=== PATIENT | female | born 1965 | race African-American/Black ===

== ENCOUNTER 2018-06-27 23:46 | Inpatient (IN) | payer MEDICAID ==
[~2018-06-27] VITALS: Ht 162.6 cm; Wt 71.2 kg
[2018-06-28] VITALS (9 sets, daily range): BP systolic 132–172; BP diastolic 75–117
[2018-06-28] MEDS ORDERED: FUROSEMIDE 40MG/4ML VIAL IV ONE
[2018-06-28] MEDS ORDERED: ASPIRIN 81MG TABLET PO ONE
[2018-06-28 00:38] LABS: BASOPHILS % 0.7 % (0.0-2.0); EOSINOPHILS % 6.9 % (0.0-5.0); HEMATOCRIT. 37.2 % (36.0-48.0); HEMOGLOBIN. 12.5 g/dL (12.0-16.0); LYMPHOCYTES % 16.2 % (20.0-50.0); MEAN CORPUSCULAR HEMOGLOBIN 31.2 pg (28.0-32.0); MEAN PLATELET VOLUME 7.7 fl (7.4-10.4); MONOCYTES % 3.4 % (2.0-8.0); NEUTROPHILS % 72.8 % (40.0-76.0); PLATELET 388 x1000/uL (130-400); RED CELL DISTRIBUTION WIDTH 16.4 % (11.6-14.6)
[2018-06-28 00:42] LABS: CHLORIDE 108 mEq/L (98-107)
[2018-06-28 00:53] LABS: ETHANOL BLOOD < 10 mg/dL
[2018-06-28 01:00] LABS: D-DIMER 11.06 mg/L FEU (<0.50); PARTIAL THROMBOPLASTIN TIME 24.7 sec (23.4-31.0); PROTHROMBIN TIME 10.4 sec (9.1-11.1)
[2018-06-28 01:02] LABS: BG BASE EXCESS -0.2 mmol/L (-2.0-2.0); BG BILEVEL POS AIRWAY PRESSURE 15/5; BG CARBOXYHEMOGLOBIN 1.2 % (0.5-1.5); BG DEOXYHEMOGLOBIN 0.5 % (0.0-5.0); BG FRACTION INSPIRED OXYGEN 100; BG METHEMOGLOBIN 0.3 % (0.0-1.5); BG OXYGEN SATURATION 99.5 % (92.0-98.5); BG PCO2 42.9 mmHg (35.0-45.0); BG PH 7.383 (7.350-7.450); BG PO2 264.9 mmHg (75.0-100.0); BG SAMPLE SITE RIGHT RADIAL; BG VENT MODE MASK - BIPAP
[2018-06-28] MEDS ORDERED: KCL 20MEQ/100ML PREMIX 100 ML IV ONE (01:15)
[2018-06-28] MEDS ORDERED: POTASSIUM CHLORIDE 20MEQ TABLET SR PO ONE (01:15)
[2018-06-28] MEDS ORDERED: NITROGLYCERIN OINT 1GM/INCH UDPKT TD ONE (01:15)
[2018-06-28 01:18] LABS: CLARITY URINE CLEAR (CLEAR); COLOR URINE YELLOW (YELLOW); KETONES URINE NEGATIVE (NEGATIVE); LEUKOCYTE ESTERASE URINE NEGATIVE (NEGATIVE); NITRITE URINE NEGATIVE (NEGATIVE); OCCULT BLOOD URINE 1+ (NEGATIVE); PROTEIN URINE 3+ (NEGATIVE); SPECIFIC GRAVITY URINE 1.009 (1.005-1.030)
[2018-06-28 01:29] LABS: *AMPHETAMINES SCREEN URINE NEGATIVE (NEGATIVE); *BARBITURATES SCREEN URINE NEGATIVE (NEGATIVE); *BENZODIAZEPINES SCREEN URINE NEGATIVE (NEGATIVE); *COCAINE SCREEN URINE PRESUMTIVE POSITIVE (NEGATIVE)
[2018-06-28 01:30] LABS: CANNABINOID URINE SCREEN PRESUMTIVE POSITIVE (NEGATIVE); METHADONE URINE SCREEN NEGATIVE (NEGATIVE); OPIATES URINE SCREEN NEGATIVE (NEGATIVE); PHENCYCLIDINE URINE SCREEN NEGATIVE (NEGATIVE)
[2018-06-28] MEDS ORDERED: IOHEXOL-350 100 ML BOTTLE ONE (03:17)
[2018-06-28] MEDS ORDERED: DOCUSATE SODIUM 100MG CAPSULE PO PRN (05:30)
[2018-06-28] MEDS ORDERED: IPRATROPIUM/ALBUTEROL 0.5-3(2.5)MG/3ML NEB INH PRN (05:30)
[2018-06-28] MEDS ORDERED: POTASSIUM CHLORIDE 20MEQ TABLET SR PO SCH (05:30)
[2018-06-28] MEDS ORDERED: ENOXAPARIN 80MG/0.8ML SYR SUBCUT SCH (06:00)
[2018-06-28] MEDS: SODIUM CHLORIDE 0.9% INJ 3ML FLUSH IVF SCH ×3 (06:16→21:50)
[2018-06-28] MEDS: FAMOTIDINE 20MG TABLET PO SCH ×2 (08:33→21:49)
[2018-06-28] MEDS: LOSARTAN POTASSIUM 50 MG TABLET PO SCH (08:33)
[2018-06-28] MEDS: CARVEDILOL 12.5MG TABLET PO SCH ×2 (08:34→21:49)
[2018-06-28] MEDS: ENOXAPARIN 40MG/0.4ML SYR SUBCUT SCH (08:34)
[2018-06-28 08:58] LABS: BASOPHILS % 0.5 % (0.0-2.0); EOSINOPHILS % 1.3 % (0.0-5.0); HEMATOCRIT. 35.7 % (36.0-48.0); HEMOGLOBIN. 11.8 g/dL (12.0-16.0); LYMPHOCYTES % 8.9 % (20.0-50.0); MEAN CORPUSCULAR HEMOGLOBIN 30.5 pg (28.0-32.0); MEAN CORPUSCULAR VOLUME 92.2 fL (81.0-99.0); MONOCYTES % 4.1 % (2.0-8.0); NEUTROPHILS % 85.2 % (40.0-76.0); PLATELET 386 x1000/uL (130-400); RED BLOOD CELL COUNT 3.87 mill/uL (4.2-5.4); RED CELL DISTRIBUTION WIDTH 16.4 % (11.6-14.6)
[2018-06-28] MEDS ORDERED: FUROSEMIDE 20MG/2ML VIAL IVP SCH (09:00)
[2018-06-28 09:02] LABS: BG BASE EXCESS -1.1 mmol/L (-2.0-2.0); BG CARBOXYHEMOGLOBIN 0.1 % (0.5-1.5); BG DEOXYHEMOGLOBIN 5.3 % (0.0-5.0); BG FRACTION INSPIRED OXYGEN 44; BG METHEMOGLOBIN 0.3 % (0.0-1.5); BG OXYGEN SATURATION 94.7 % (92.0-98.5); BG OXYHEMOGLOBIN 94.3 % (94.0-97.0); BG PCO2 31.6 mmHg (35.0-45.0); BG PH 7.461 (7.350-7.450); BG PO2 75.4 mmHg (75.0-100.0); BG SAMPLE SITE RIGHT BRACHIAL; BG TOTAL HEMOGLOBIN 11.7 g/dL (12.0-18.0); BG VENT MODE NASAL CANNULA
[2018-06-28] MEDS: IPRATROPIUM/ALBUTEROL 0.5-3(2.5)MG/3ML NEB HHN SCH ×4 (09:06→21:54)
[2018-06-28 09:14] LABS: CHLORIDE 106 mEq/L (98-107)
[2018-06-28 09:21] LABS: LDL CHOLESTEROL 68 mg/dL (5-100)
[2018-06-28 09:23] LABS: HDL CHOLESTEROL 79 mg/dL (40-59)
[2018-06-28] MEDS: CEFTRIAXONE 1 G PREMIX 50 ML IV SCH (18:05)
[2018-06-28] MEDS: CLONIDINE 0.1MG TABLET PO PRN (20:20)
[2018-06-28] MEDS: ACETAMINOPHEN 325MG TABLET PO PRN (21:48)
[2018-06-29] VITALS (20 sets, daily range): BP systolic 126–189; BP diastolic 65–119
[2018-06-29] MEDS: IPRATROPIUM/ALBUTEROL 0.5-3(2.5)MG/3ML NEB HHN SCH ×5 (01:37→16:05)
[2018-06-29] MEDS: CLONIDINE 0.1MG TABLET PO PRN (02:16)
[2018-06-29] MEDS: CEFTRIAXONE 1 G PREMIX 50 ML IV SCH (06:16)
[2018-06-29] MEDS: SODIUM CHLORIDE 0.9% INJ 3ML FLUSH IVF SCH (06:16)
[2018-06-29 07:33] LABS: BASOPHILS % 0.9 % (0.0-2.0); EOSINOPHILS % 7.2 % (0.0-5.0); HEMOGLOBIN. 10.9 g/dL (12.0-16.0); LYMPHOCYTES % 23.7 % (20.0-50.0); MEAN CORPUSCULAR VOLUME 93.9 fL (81.0-99.0); MEAN PLATELET VOLUME 8.2 fl (7.4-10.4); MONOCYTES % 5.6 % (2.0-8.0); NEUTROPHILS % 62.6 % (40.0-76.0); PLATELET 336 x1000/uL (130-400); RED BLOOD CELL COUNT 3.51 mill/uL (4.2-5.4); RED CELL DISTRIBUTION WIDTH 16.5 % (11.6-14.6)
[2018-06-29] MEDS: ENOXAPARIN 40MG/0.4ML SYR SUBCUT SCH (08:15)
[2018-06-29] MEDS: CARVEDILOL 12.5MG TABLET PO SCH (08:16)
[2018-06-29] MEDS: FAMOTIDINE 20MG TABLET PO SCH (08:16)
[2018-06-29] MEDS: LOSARTAN POTASSIUM 50 MG TABLET PO SCH (08:16)
[2018-06-29] MEDS ORDERED: FUROSEMIDE 40MG/4ML VIAL IVP SCH (09:00)
[2018-06-29] MEDS ORDERED: POTASSIUM CHLORIDE 20MEQ TABLET SR PO SCH (09:00)
[2018-06-29 10:37] LABS: BG BASE EXCESS -0.1 mmol/L (-2.0-2.0); BG CARBOXYHEMOGLOBIN 0.8 % (0.5-1.5); BG DEOXYHEMOGLOBIN 5.4 % (0.0-5.0); BG FRACTION INSPIRED OXYGEN 21; BG HCO3 ACT 22.1 mmol/L (22.0-26.0); BG METHEMOGLOBIN 0.1 % (0.0-1.5); BG OXYGEN SATURATION 94.6 % (92.0-98.5); BG OXYHEMOGLOBIN 93.7 % (94.0-97.0); BG PCO2 28.8 mmHg (35.0-45.0); BG PH 7.502 (7.350-7.450); BG PO2 71.8 mmHg (75.0-100.0); BG SAMPLE SITE LEFT BRACHIAL; BG TOTAL HEMOGLOBIN 12.6 g/dL (12.0-18.0); BG VENT MODE ROOM AIR
[2018-06-29] MEDS: ACETAMINOPHEN 325MG TABLET PO PRN (10:53)
== END 2018-06-29 17:12 | disposition home or self-care (01) | DRG 194 ==
LOC: ER 23:46 → 3WST 06-28 01:50 → EDBEDREQTM 06-28 01:54 → EDBEDREQDT 06-28 01:54 → EDBEDREQ 06-28 01:54 → ENRESERV 06-28 02:26 → 3WST 06-28 03:40
PROVIDERS: ADMIT Ophthalmology; ATTEND Ophthalmology
PROC: 5A09357 Assistance with Respiratory Ventilation, Less than 24 Consecutive Hours, Continuous Positive Airway Pressure (ICD-10-PCS; principal; 2018-06-27)
PROC: 5A09357 Assistance with Respiratory Ventilation, Less than 24 Consecutive Hours, Continuous Positive Airway Pressure (ICD-10-PCS; 2018-06-28)
DX: J81.0 Acute pulmonary edema (principal); I50.9 Heart failure, unspecified; I11.0 Hypertensive heart disease with heart failure; I21.4 Non-ST elevation (NSTEMI) myocardial infarction; J96.01 Acute respiratory failure with hypoxia; E78.5 Hyperlipidemia, unspecified; E87.6 Hypokalemia; F17.200 Nicotine dependence, unspecified, uncomplicated; I45.10 Unspecified right bundle-branch block; N39.0 Urinary tract infection, site not specified; F14.10 Cocaine abuse, uncomplicated; Z91.14 Patient's other noncompliance with medication regimen; Z79.899 Other long term (current) drug therapy
CPT/HCPCS: 36415; 36600; 71045; 71275; 80048; 80053; 80061; 80305; 81003; 82375; 82805; 83735; 83880; 84443; 84484; 85025; 85379; 85610; 85730; 87077; 87086; 87186; 93005; 93306; 93970; 94660; 96361; 96374; 99291; 99406; G0482; J0696; J1650; J1940; J3480; J7620; Q9967

== ENCOUNTER 2019-04-29 13:45 | Inpatient (IN) | payer MEDICAID ==
[~2019-04-29] VITALS: Ht 160 cm; Wt 73.0 kg
[2019-04-29] MEDS ORDERED: HYDRALAZINE 20MG/ML VIAL IV ONE ×2 (14:15→16:45)
[2019-04-29 14:57] LABS: *AMPHETAMINES SCREEN URINE NEGATIVE (NEGATIVE); *BARBITURATES SCREEN URINE NEGATIVE (NEGATIVE)
[2019-04-29 14:59] LABS: *BENZODIAZEPINES SCREEN URINE NEGATIVE (NEGATIVE); *COCAINE SCREEN URINE PRESUMTIVE POSITIVE (NEGATIVE); CANNABINOID URINE SCREEN PRESUMTIVE POSITIVE (NEGATIVE); METHADONE URINE SCREEN NEGATIVE (NEGATIVE); OPIATES URINE SCREEN NEGATIVE (NEGATIVE); PHENCYCLIDINE URINE SCREEN NEGATIVE (NEGATIVE)
[2019-04-29 15:24] LABS: BASOPHILS % 0.4 % (0.0-2.0); EOSINOPHILS % 1.5 % (0.0-5.0); HEMATOCRIT. 49.8 % (36.0-48.0); HEMOGLOBIN. 16.8 g/dL (12.0-16.0); LYMPHOCYTES % 17.6 % (20.0-50.0); MEAN CORPUSCULAR HEMOGLOBIN 30.9 pg (28.0-32.0); MEAN CORPUSCULAR VOLUME 91.5 fL (81.0-99.0); MEAN PLATELET VOLUME 9.1 fl (7.4-10.4); MONOCYTES % 6.7 % (2.0-8.0); NEUTROPHILS % 73.8 % (40.0-76.0); PLATELET 229 x1000/uL (130-400); RED BLOOD CELL COUNT 5.45 mill/uL (4.2-5.4); RED CELL DISTRIBUTION WIDTH 14.9 % (11.6-14.6)
[2019-04-29 15:26] LABS: CHLORIDE 102 mEq/L (98-107)
[2019-04-29 15:30] LABS: ETHANOL BLOOD < 10 mg/dL
[2019-04-29 15:40] LABS: PARTIAL THROMBOPLASTIN TIME 28.2 sec (23.4-31.0)
[2019-04-29] MEDS ORDERED: CLONIDINE 0.2MG TABLET PO ONE (16:00)
[2019-04-29] MEDS ORDERED: ASPIRIN 325MG EC TABLET PO ONE (16:30)
[2019-04-29] MEDS ORDERED: LORAZEPAM 2MG/ML CPJ IV ONE (16:45)
[2019-04-29] MEDS ORDERED: LABETALOL 5MG/ML SYR 20 MG/4 ML SYRINGE IV ONE ×2 (18:00→22:00)
[2019-04-29 22:00] VITALS: BP 154/93
[2019-04-29] MEDS ORDERED: CLONIDINE 0.2MG TABLET PO PRN (22:15)
[2019-04-29] MEDS ORDERED: ENALAPRIL 2.5MG/2ML VIAL 2ML IV PRN (23:16)
[2019-04-30] VITALS (13 sets, daily range): BP systolic 115–165; BP diastolic 43–105
[2019-04-30] MEDS: HYDRALAZINE 20MG/ML VIAL IV SCH ×2 (00:40→06:29)
[2019-04-30] MEDS ORDERED: DEXT 5%/0.45% NACL KCL 20MEQ/L 1,000 ML IV SCH (01:00)
[2019-04-30 08:11] LABS: BASOPHILS % 0.6 % (0.0-2.0); EOSINOPHILS % 1.9 % (0.0-5.0); HEMATOCRIT. 44.5 % (36.0-48.0); HEMOGLOBIN. 14.9 g/dL (12.0-16.0); LYMPHOCYTES % 24.9 % (20.0-50.0); MEAN CORPUSCULAR HEMOGLOBIN 30.7 pg (28.0-32.0); MEAN CORPUSCULAR VOLUME 91.9 fL (81.0-99.0); MEAN PLATELET VOLUME 9.4 fl (7.4-10.4); MONOCYTES % 9.3 % (2.0-8.0); NEUTROPHILS % 63.3 % (40.0-76.0); PLATELET 209 x1000/uL (130-400); RED BLOOD CELL COUNT 4.84 mill/uL (4.2-5.4); RED CELL DISTRIBUTION WIDTH 14.9 % (11.6-14.6)
[2019-04-30 08:36] LABS: CHLORIDE 106 mEq/L (98-107)
[2019-04-30 08:48] LABS: CREATINE KINASE 82 IU/L (26-192)
[2019-04-30 08:51] LABS: CREATINE KINASE MB FRACTION 1.5 ng/mL (0.5-3.6)
[2019-04-30] MEDS: ASPIRIN 81MG TABLET PO SCH (08:57)
[2019-04-30] MEDS ORDERED: METOPROLOL TARTRATE 50MG TABLET PO SCH (09:00)
[2019-04-30] MEDS ORDERED: LOSARTAN POTASSIUM 100 MG TABLET PO SCH (09:00)
[2019-04-30] MEDS: METOPROLOL TARTRATE 50MG TABLET PO SCH (20:57)
[2019-04-30] MEDS ORDERED: METOPROLOL TARTRATE 25MG TABLET PO SCH (21:00)
[2019-05-01] VITALS (20 sets, daily range): BP systolic 140–185; BP diastolic 83–123
[2019-05-01] MEDS: CLONIDINE 0.1MG TABLET PO PRN ×4 (00:11→21:35)
[2019-05-01 06:06] LABS: CHLORIDE 109 mEq/L (98-107)
[2019-05-01 06:27] LABS: BASOPHILS % 0.4 % (0.0-2.0); HEMATOCRIT. 42.6 % (36.0-48.0); HEMOGLOBIN. 14.3 g/dL (12.0-16.0); LYMPHOCYTES % 33.4 % (20.0-50.0); MEAN CORPUSCULAR HEMOGLOBIN 30.8 pg (28.0-32.0); MEAN CORPUSCULAR VOLUME 91.6 fL (81.0-99.0); MEAN PLATELET VOLUME 9.1 fl (7.4-10.4); MONOCYTES % 8.5 % (2.0-8.0); NEUTROPHILS % 54.7 % (40.0-76.0); PLATELET 207 x1000/uL (130-400); RED BLOOD CELL COUNT 4.65 mill/uL (4.2-5.4); RED CELL DISTRIBUTION WIDTH 14.8 % (11.6-14.6)
[2019-05-01] MEDS ORDERED: LOSARTAN POTASSIUM 50 MG TABLET PO SCH (09:00)
[2019-05-01] MEDS: ASPIRIN 81MG TABLET PO SCH (09:20)
[2019-05-01] MEDS: METOPROLOL TARTRATE 50MG TABLET PO SCH ×2 (09:21→20:18)
[2019-05-01] MEDS ORDERED: LOSARTAN POTASSIUM 100 MG TABLET PO SCH (12:00)
[2019-05-01] MEDS ORDERED: LOSARTAN POTASSIUM 50 MG TABLET PO NR (12:15)
[2019-05-01] MEDS ORDERED: HYDRALAZINE HCL 25MG TABLET PO SCH (22:00)
[2019-05-02] VITALS (13 sets, daily range): BP systolic 132–177; BP diastolic 63–113
[2019-05-02] MEDS: HYDRALAZINE HCL 50MG TABLET PO SCH ×3 (06:47→21:39)
[2019-05-02 07:03] LABS: BASOPHILS % 0.5 % (0.0-2.0); EOSINOPHILS % 3.1 % (0.0-5.0); HEMATOCRIT. 41.5 % (36.0-48.0); HEMOGLOBIN. 13.8 g/dL (12.0-16.0); LYMPHOCYTES % 33.3 % (20.0-50.0); MEAN CORPUSCULAR HEMOGLOBIN 30.5 pg (28.0-32.0); MEAN CORPUSCULAR VOLUME 91.4 fL (81.0-99.0); MEAN PLATELET VOLUME 9.5 fl (7.4-10.4); MONOCYTES % 7.8 % (2.0-8.0); NEUTROPHILS % 55.3 % (40.0-76.0); PLATELET 195 x1000/uL (130-400); RED BLOOD CELL COUNT 4.54 mill/uL (4.2-5.4); RED CELL DISTRIBUTION WIDTH 14.8 % (11.6-14.6)
[2019-05-02] MEDS: CLONIDINE 0.1MG TABLET PO PRN (07:25)
[2019-05-02 08:12] LABS: CHLORIDE 108 mEq/L (98-107)
[2019-05-02] MEDS: ASPIRIN 81MG TABLET PO SCH (08:12)
[2019-05-02] MEDS: LOSARTAN POTASSIUM 100 MG TABLET PO SCH (08:13)
[2019-05-02] MEDS: METOPROLOL TARTRATE 50MG TABLET PO SCH ×2 (08:13→21:39)
[2019-05-02] MEDS: CLONIDINE 0.2MG TABLET PO PRN (12:36)
[2019-05-02] MEDS ORDERED: HYDRALAZINE HCL 25MG TABLET PO SCH ×2 (14:00)
[2019-05-03] VITALS (7 sets, daily range): BP systolic 131–165; BP diastolic 81–106
[2019-05-03] MEDS: HYDRALAZINE HCL 50MG TABLET PO SCH ×2 (05:32→23:22)
[2019-05-03] MEDS: LOSARTAN POTASSIUM 100 MG TABLET PO SCH (08:18)
[2019-05-03] MEDS: ASPIRIN 81MG TABLET PO SCH (08:18)
[2019-05-03] MEDS: METOPROLOL TARTRATE 50MG TABLET PO SCH ×2 (08:19→23:22)
[2019-05-03] MEDS ORDERED: CLONIDINE HCL 0.2MG/24HR PATCH TD SCH (09:00)
[2019-05-03] MEDS: CLONIDINE 0.2MG TABLET PO PRN ×2 (10:42→14:00)
[2019-05-03] MEDS ORDERED: MINOXIDIL 2.5MG TABLET PO SCH (21:00)
[2019-05-04] VITALS: BP 167/92
[2019-05-04 04:00] VITALS: BP 136/82
[2019-05-04] MEDS: HYDRALAZINE HCL 50MG TABLET PO SCH (05:25)
[2019-05-04 06:11] LABS: BASOPHILS % 0.5 % (0.0-2.0); EOSINOPHILS % 3.2 % (0.0-5.0); HEMATOCRIT. 41.9 % (36.0-48.0); HEMOGLOBIN. 13.9 g/dL (12.0-16.0); LYMPHOCYTES % 35.3 % (20.0-50.0); MEAN CORPUSCULAR HEMOGLOBIN 30.5 pg (28.0-32.0); MEAN CORPUSCULAR VOLUME 91.9 fL (81.0-99.0); MEAN PLATELET VOLUME 9.8 fl (7.4-10.4); MONOCYTES % 10.7 % (2.0-8.0); NEUTROPHILS % 50.3 % (40.0-76.0); PLATELET 190 x1000/uL (130-400); RED BLOOD CELL COUNT 4.56 mill/uL (4.2-5.4); RED CELL DISTRIBUTION WIDTH 14.6 % (11.6-14.6)
[2019-05-04 06:22] LABS: CHLORIDE 107 mEq/L (98-107)
[2019-05-04 08:00] VITALS: BP 157/92
[2019-05-04] MEDS ORDERED: HYDRALAZINE HCL 50MG TABLET PO SCH (08:30)
[2019-05-04] MEDS: LOSARTAN POTASSIUM 100 MG TABLET PO SCH (08:34)
[2019-05-04] MEDS: METOPROLOL TARTRATE 50MG TABLET PO SCH (08:35)
[2019-05-04] MEDS: ASPIRIN 81MG TABLET PO SCH (08:35)
[2019-05-04 10:13] VITALS: BP_SYST 107; BP_SYST 157; BP_DIAS 60; BP_DIAS 92
[2019-05-04] MEDS ORDERED: HYDRALAZINE HCL 100MG TABLET PO SCH (11:41)
[2019-05-04] MEDS: CLONIDINE 0.2MG TABLET PO PRN (12:35)
== END 2019-05-04 14:20 | disposition home or self-care (01) | DRG 816 ==
LOC: ER 14:03 → EDBEDREQTM 16:43 → EDBEDREQ 16:43 → 3WST 19:04 → EDBEDREQSVC 19:09 → EDBEDREQTM 19:09 → ENRESERV 20:10 → 8WST 05-02 18:20
PROVIDERS: ADMIT Internal Medicine Critical Care Medicine; ATTEND Internal Medicine Critical Care Medicine
PROC: 4A00X4Z Measurement of Central Nervous Electrical Activity, External Approach (ICD-10-PCS; principal; 2019-05-02)
DX: T40.5X1A Poisoning by cocaine, accidental (unintentional), initial encounter (principal); I67.4 Hypertensive encephalopathy; I43 Cardiomyopathy in diseases classified elsewhere; G45.9 Transient cerebral ischemic attack, unspecified; I50.9 Heart failure, unspecified; I11.0 Hypertensive heart disease with heart failure; Y92.89 Other specified places as the place of occurrence of the external cause; I16.1 Hypertensive emergency; Z91.19 Patient's noncompliance with other medical treatment and regimen; F19.10 Other psychoactive substance abuse, uncomplicated; F12.90 Cannabis use, unspecified, uncomplicated; F14.23 Cocaine dependence with withdrawal; H50.111 Monocular exotropia, right eye; G47.00 Insomnia, unspecified; Z72.0 Tobacco use; Z79.899 Other long term (current) drug therapy; Z82.49 Family history of ischemic heart disease and other diseases of the circulatory system; Z91.14 Patient's other noncompliance with medication regimen; I16.0 Hypertensive urgency; I11.9 Hypertensive heart disease without heart failure
CPT/HCPCS: 36415; 70551; 71045; 80048; 80305; 80320; 82550; 82553; 82962; 83880; 84484; 93005; 95816; 96374; 99285; J0360; J2060; J7050; G0480

== ENCOUNTER 2019-11-05 23:59 | Emergency (ER) | payer MEDICAID ==
[~2019-11-05] VITALS: Ht 167.6 cm; Wt 68.0 kg
[2019-11-06 02:38] VITALS: BP 143/64
== END 2019-11-06 04:28 | disposition home or self-care (01) ==
LOC: ER 23:59
DX: R53.1 Weakness (principal); I10 Essential (primary) hypertension; Z86.73 Personal history of transient ischemic attack (TIA), and cerebral infarction without residual deficits
CPT/HCPCS: 99283; Z7610

== ENCOUNTER 2019-11-07 17:34 | Emergency (ER) | payer MEDICAID ==
[~2019-11-07] VITALS: Ht 170.2 cm; Wt 72.0 kg
[2019-11-07 22:25] VITALS: BP 163/87
== END 2019-11-07 22:30 | disposition home or self-care (01) ==
LOC: ER 17:34
DX: Z00.00 Encounter for general adult medical examination without abnormal findings (principal); I10 Essential (primary) hypertension
CPT/HCPCS: 99283

== ENCOUNTER 2021-03-03 14:06 | Emergency (ER) | payer MEDICAID, OTHER ==
[~2021-03-03] VITALS: Ht 162.6 cm; Wt 66.0 kg
[2021-03-03 14:07] VITALS: BP 130/84
== END 2021-03-03 14:32 ==
LOC: ER 14:06
DX: Z00.00 Encounter for general adult medical examination without abnormal findings (principal); I10 Essential (primary) hypertension; R56.9 Unspecified convulsions; Z86.73 Personal history of transient ischemic attack (TIA), and cerebral infarction without residual deficits
CPT/HCPCS: 99283

== ENCOUNTER 2021-03-03 16:25 | Emergency (ER) | payer OTHER ==
[~2021-03-03] VITALS: Ht 162.6 cm; Wt 64.0 kg
[2021-03-03 17:00] VITALS: BP 146/84
== END 2021-03-03 17:03 ==
LOC: ER 16:25
DX: Z00.00 Encounter for general adult medical examination without abnormal findings (principal); I10 Essential (primary) hypertension; Z86.73 Personal history of transient ischemic attack (TIA), and cerebral infarction without residual deficits; R56.9 Unspecified convulsions
CPT/HCPCS: 99283

== ENCOUNTER 2024-06-01 12:12 | Inpatient (IN) | payer MEDICAID, OTHER ==
[~2024-06-01] VITALS: Ht 172.7 cm; Wt 57.6 kg
[~2024-06-01 12:12] MED LIST: ATOR20TA65 PO; CARB100C9 PO; CHLO25TA2 PO; HYDR50TA39 PO; LEVE500T19 PO
[2024-06-01] MEDS: LORAZEPAM 2MG/ML INJ IM ONE (12:41)
[2024-06-01] MEDS: DIPHENHYDRAMINE 50MG/ML VIAL IM ONE (12:41)
[2024-06-01] MEDS: HALOPERIDOL LACTATE 5MG/ML VIAL IM ONE (12:41)
[2024-06-01 13:23] LABS: BASOPHILS % 0.6 % (0.0-2.0); EOSINOPHILS % 0.8 % (0.0-5.0); HEMATOCRIT. 39.8 % (36.0-48.0); LYMPHOCYTES % 33.2 % (20.0-50.0); MEAN CORPUSCULAR HGB CONC 32.6 g/dL (31.0-37.0); MEAN CORPUSCULAR VOLUME 95.1 fL (81.0-99.0); MEAN PLATELET VOLUME 8.4 fl (7.4-10.4); MONOCYTES % 11.7 % (2.0-8.0); NEUTROPHILS % 53.7 % (40.0-76.0); PLATELET 249 x1000/uL (130-400); RED BLOOD CELL COUNT 4.18 mill/uL (4.2-5.4); RED CELL DISTRIBUTION WIDTH 13.8 % (11.6-14.6); WHITE BLOOD COUNT 5.6 x1000/uL (4.5-11.0)
[2024-06-01 13:41] LABS: CHLORIDE 105 mEq/L (98-107); POTASSIUM 2.9 mEq/L (3.5-5.1); SODIUM 144 mEq/L (136-145)
[2024-06-01 13:42] LABS: CARBON DIOXIDE 29 mEq/L (21-32)
[2024-06-01 13:43] LABS: CALCIUM 10.2 mg/dL (8.7-10.4)
[2024-06-01] MEDS: SODIUM CHLORIDE 0.9% 1,000 ML IV ONE (13:43)
[2024-06-01 13:47] LABS: GLUCOSE 138 mg/dL (70-105); UREA NITROGEN BLOOD 22 mg/dL (9-23)
[2024-06-01 13:48] LABS: TROPONIN I HIGH SENSITIVITY 19 ng/L (3.0-34)
[2024-06-01 13:50] LABS: CREATINE KINASE 350 IU/L (34-145)
[2024-06-01 14:05] LABS: ETHANOL BLOOD < 10 mg/dL (<10)
[2024-06-01 14:07] LABS: HCG SCREEN NEGATIVE
[2024-06-01] MEDS: KCL 10MEQ/50ML PREMIX 50 ML IV SCH (15:28)
[2024-06-01] MEDS ORDERED: IPRATROPIUM/ALBUTEROL 0.5-3(2.5)MG/3ML NEB HHN PRN (19:30)
[2024-06-01] MEDS ORDERED: NITROGLYCERIN 0.1MG/HR PATCH TOP SCH (19:30)
[2024-06-01 20:36] VITALS: BP 197/120; PULSE 18; RESP 18; TEMP 36.50292; O2SAT 100
[2024-06-01 20:37] VITALS: BP 197/120; PULSE 73; RESP 18; TEMP 36.5292
[2024-06-01] MEDS: FAMOTIDINE 20MG/2ML VIAL IV SCH (21:00)
[2024-06-01] MEDS ORDERED: KCL 10MEQ/50ML PREMIX 50 ML IV SCH (21:00)
[2024-06-01] MEDS ORDERED: LEVETIRACETAM 500MG in NACL 100ML PREMIX IV SCH (21:00)
[2024-06-01] MEDS ORDERED: LEVETIRACETAM 500MG TABLET PO SCH (21:00)
[2024-06-01] MEDS: MVI, ADULT NO.1 10 ML, FOLIC ACID 1 MG, THIAMINE HCL 100 MG in SODIUM CHLORIDE 0.9% 1,0... IV ONE (21:24)
[2024-06-01] MEDS: LEVETIRACETAM 500MG PREMIX 100ML IV SCH (21:25)
[2024-06-01] MEDS: DEXT 5%/0.45% NACL KCL 20MEQ/L 1,000 ML IV SCH (21:25)
[2024-06-01] MEDS: MAGNESIUM 1 G PREMIX 100 ML IV NR (22:18)
[2024-06-01] MEDS: CARBAMAZEPINE 100MG TABLET CHEW PO SCH (22:20)
[2024-06-01] MEDS: NITROGLYCERIN 0.1MG/HR PATCH TOP SCH (22:21)
[2024-06-01] MEDS: ENOXAPARIN 40MG/0.4ML SYR SUBCUT SCH (22:22)
[2024-06-01] MEDS: WATER IV NR (22:33)
[2024-06-01] MEDS: POTASSIUM CHLORIDE IV NR (22:33)
[2024-06-01] MEDS: DEXT 5% IV NR (22:33)
[2024-06-01 23:14] VITALS: BP 188/107; PULSE 78; RESP 18; TEMP 36.50292; O2SAT 99
[2024-06-02 00:14] VITALS: BP 147/70; PULSE 74; RESP 18; TEMP 36.61404; O2SAT 99
[2024-06-02] MEDS: METOPROLOL TARTRATE 5MG/5ML VIAL IV SCH (00:45)
[2024-06-02 01:25] VITALS: BP 168/100; PULSE 91; RESP 18; TEMP 36.50292; TEMP 36.5292; O2SAT 100
[2024-06-02 05:06] LABS: CLARITY URINE CLEAR (CLEAR); COLOR URINE YELLOW (YELLOW); GLUCOSE URINE NEGATIVE (NEGATIVE); KETONES URINE NEGATIVE (NEGATIVE); LEUKOCYTE ESTERASE URINE NEGATIVE (NEGATIVE); NITRITE URINE NEGATIVE (NEGATIVE); OCCULT BLOOD URINE NEGATIVE (NEGATIVE); PH URINE 6.5 (4.5-8.0); PROTEIN URINE NEGATIVE (NEGATIVE); SPECIFIC GRAVITY URINE 1.015 (1.005-1.030)
[2024-06-02 05:19] LABS: *AMPHETAMINES SCREEN URINE NEGATIVE (NEGATIVE)
[2024-06-02 05:20] LABS: *BARBITURATES SCREEN URINE NEGATIVE (NEGATIVE); *BENZODIAZEPINES SCREEN URINE NEGATIVE (NEGATIVE); *COCAINE SCREEN URINE PRESUMPTIVE POSITIVE (NEGATIVE); METHADONE URINE SCREEN NEGATIVE (NEGATIVE); OPIATES URINE SCREEN NEGATIVE (NEGATIVE); PHENCYCLIDINE URINE SCREEN NEGATIVE (NEGATIVE)
[2024-06-02 05:21] LABS: CANNABINOID URINE SCREEN PRESUMPTIVE POSITIVE (NEGATIVE); ECSTASY MDMA SCREEN URINE NEGATIVE (NEGATIVE)
[2024-06-02 08:00] VITALS: BP 164/90; PULSE 84; RESP 18; TEMP 36.50292; O2SAT 100
[2024-06-02 10:08] LABS: BASOPHILS % 0.6 % (0.0-2.0); EOSINOPHILS % 2.1 % (0.0-5.0); HEMATOCRIT. 34.6 % (36.0-48.0); HEMOGLOBIN. 11.6 g/dL (12.0-16.0); LYMPHOCYTES % 31.4 % (20.0-50.0); MEAN CORPUSCULAR HEMOGLOBIN 32.2 pg (28.0-32.0); MEAN CORPUSCULAR HGB CONC 33.6 g/dL (31.0-37.0); MEAN CORPUSCULAR VOLUME 95.8 fL (81.0-99.0); MEAN PLATELET VOLUME 8.5 fl (7.4-10.4); MONOCYTES % 8.9 % (2.0-8.0); PLATELET 225 x1000/uL (130-400); RED BLOOD CELL COUNT 3.61 mill/uL (4.2-5.4); RED CELL DISTRIBUTION WIDTH 13.8 % (11.6-14.6); WHITE BLOOD COUNT 4.5 x1000/uL (4.5-11.0)
[2024-06-02 10:17] LABS: CHLORIDE 108 mEq/L (98-107); SODIUM 144 mEq/L (136-145)
[2024-06-02 10:18] LABS: CALCIUM 8.8 mg/dL (8.7-10.4); CARBON DIOXIDE 28 mEq/L (21-32)
[2024-06-02 10:23] LABS: CREATININE 0.8 mg/dL (0.6-1.0); GLUCOSE 80 mg/dL (70-105); UREA NITROGEN BLOOD 16 mg/dL (9-23)
[2024-06-02 10:24] LABS: TROPONIN I HIGH SENSITIVITY 19 ng/L (3.0-34)
[2024-06-02 10:25] LABS: ALANINE AMINOTRANSFERASE 8 IU/L (10-49); ALBUMIN 3.7 g/dL (3.2-4.8); ASPARTATE AMINOTRANSFERASE 23 IU/L (<34); PROTEIN TOTAL 5.8 g/dL (6.0-8.3)
[2024-06-02 10:27] LABS: THYROID STIMULATING HORMONE 1.01 uIU/mL (0.55-4.78)
[2024-06-02 10:55] LABS: POTASSIUM 2.8 mEq/L (3.5-5.1)
[2024-06-02 11:33] LABS: FOLIC ACID (FOLATE) SERUM 14.19 ng/mL (>5.38)
[2024-06-02 11:34] LABS: VITAMIN B12 SERUM 652 pg/mL (211-911)
[2024-06-02 12:00] VITALS: BP 159/90; PULSE 78; RESP 18; TEMP 37.11408; O2SAT 99
[2024-06-02] MEDS: OLANZAPINE 10MG TABLET PO SCH (14:58)
[2024-06-02] MEDS: POTASSIUM CHLORIDE 20MEQ TABLET SR PO NR (14:59)
[2024-06-02 16:00] VITALS: BP 150/90; PULSE 84; RESP 18; TEMP 36.61404; O2SAT 100
[2024-06-02] MEDS ORDERED: KCL 10MEQ/50ML PREMIX 50 ML IV SCH (16:00)
[2024-06-02] MEDS: KCL 10MEQ/50ML PREMIX 50 ML IV NR (17:05)
[2024-06-02 20:00] VITALS: BP 157/99; PULSE 76; RESP 16; TEMP 36.3918; O2SAT 97
[2024-06-02] MEDS: METOPROLOL TARTRATE 50MG TABLET PO SCH (20:34)
[2024-06-03] VITALS (7 sets, daily range): BP systolic 115–157; BP diastolic 78–89; PULSE 60–74; RESP 18–20; TEMP 36.28068–37.28076; O2SAT 95–100
[2024-06-03 05:51] LABS: CALCIUM 8.7 mg/dL (8.7-10.4); CARBON DIOXIDE 28 mEq/L (21-32); CHLORIDE 110 mEq/L (98-107); POTASSIUM 3.7 mEq/L (3.5-5.1); SODIUM 143 mEq/L (136-145)
[2024-06-03 05:55] LABS: CREATININE 0.9 mg/dL (0.6-1.0)
[2024-06-03 05:57] LABS: GLUCOSE 88 mg/dL (70-105); UREA NITROGEN BLOOD 19 mg/dL (9-23)
[2024-06-03 06:12] LABS: BASOPHILS % 0.9 % (0.0-2.0); EOSINOPHILS % 2.3 % (0.0-5.0); HEMOGLOBIN. 10.9 g/dL (12.0-16.0); LYMPHOCYTES % 36.3 % (20.0-50.0); MEAN CORPUSCULAR HEMOGLOBIN 31.9 pg (28.0-32.0); MEAN CORPUSCULAR VOLUME 96.8 fL (81.0-99.0); MEAN PLATELET VOLUME 8.6 fl (7.4-10.4); MONOCYTES % 8.2 % (2.0-8.0); NEUTROPHILS % 52.3 % (40.0-76.0); PLATELET 219 x1000/uL (130-400); RED BLOOD CELL COUNT 3.41 mill/uL (4.2-5.4); RED CELL DISTRIBUTION WIDTH 13.8 % (11.6-14.6); WHITE BLOOD COUNT 4.5 x1000/uL (4.5-11.0)
[2024-06-03] MEDS ORDERED: METO-539 PO (15:16)
[2024-06-03] MEDS: LORAZEPAM 2MG/ML INJ IV PRN (19:27)
[2024-06-04] VITALS (8 sets, daily range): BP systolic 116–163; BP diastolic 68–94; PULSE 61–80; RESP 16–20; TEMP 36.3918–36.6696; O2SAT 96–100
[2024-06-04] MEDS: HYDRALAZINE 20MG/ML VIAL IV PRN (04:55)
[2024-06-05] VITALS: BP 133/77; PULSE 75; RESP 20; TEMP 36.16956
[2024-06-05 04:00] VITALS: BP 154/98; PULSE 71; RESP 16; TEMP 36.22512; O2SAT 98
[2024-06-05 05:59] LABS: CHLORIDE 107 mEq/L (98-107); POTASSIUM 3.6 mEq/L (3.5-5.1); SODIUM 142 mEq/L (136-145)
[2024-06-05 06:00] LABS: CALCIUM 9.2 mg/dL (8.7-10.4); CARBON DIOXIDE 30 mEq/L (21-32)
[2024-06-05 06:05] LABS: GLUCOSE 94 mg/dL (70-105); UREA NITROGEN BLOOD 17 mg/dL (9-23)
[2024-06-05 07:08] LABS: BASOPHILS % 0.6 % (0.0-2.0); HEMOGLOBIN. 12.5 g/dL (12.0-16.0); LYMPHOCYTES % 33.4 % (20.0-50.0); MEAN CORPUSCULAR HEMOGLOBIN 32.3 pg (28.0-32.0); MEAN CORPUSCULAR HGB CONC 33.9 g/dL (31.0-37.0); MEAN CORPUSCULAR VOLUME 95.2 fL (81.0-99.0); MONOCYTES % 8.8 % (2.0-8.0); NEUTROPHILS % 55.2 % (40.0-76.0); PLATELET 240 x1000/uL (130-400); RED BLOOD CELL COUNT 3.88 mill/uL (4.2-5.4); RED CELL DISTRIBUTION WIDTH 13.7 % (11.6-14.6); WHITE BLOOD COUNT 3.5 x1000/uL (4.5-11.0)
[2024-06-05 08:00] VITALS: BP 184/85; PULSE 75; RESP 20; TEMP 36.114; O2SAT 96
[2024-06-05 12:00] VITALS: BP 105/57; PULSE 66; RESP 18; TEMP 36.83628; O2SAT 98
[2024-06-05 16:00] VITALS: BP 135/62; PULSE 76; RESP 20; TEMP 36.22512; O2SAT 98
[2024-06-05 20:00] VITALS: BP 150/105; PULSE 94; RESP 18; TEMP 37.00296; O2SAT 97
[2024-06-06] VITALS: BP 148/89; PULSE 89; RESP 18; TEMP 36.55848; O2SAT 97
[2024-06-06 04:00] VITALS: BP 145/70; PULSE 78; RESP 20; TEMP 36.6696; O2SAT 98
[2024-06-06 08:00] VITALS: BP 160/98; PULSE 78; RESP 20; TEMP 36.78072; O2SAT 99
[2024-06-06 11:55] VITALS: BP 169/97; PULSE 82; RESP 20; TEMP 37.05852; O2SAT 99
[2024-06-06 16:30] VITALS: BP 158/89; PULSE 88; RESP 20; TEMP 36.89184; O2SAT 98
[2024-06-06] MEDS: NIFEDIPINE XL 60MG TAB PO SCH (18:09)
[2024-06-06 20:00] VITALS: BP 161/94; PULSE 84; RESP 20; TEMP 36.83628; O2SAT 97
[2024-06-07] VITALS (7 sets, daily range): BP systolic 117–199; BP diastolic 83–125; PULSE 80–108; RESP 18–22; TEMP 35.8362–36.6696; O2SAT 95–99
[2024-06-07] MEDS: DIPHENHYDRAMINE 50MG/ML VIAL IV NR (04:51)
[2024-06-07] MEDS: ACETAMINOPHEN 325MG TABLET PO PRN (13:24)
[2024-06-07] MEDS: LEVETIRACETAM 500MG TABLET PO SCH (21:33)
[2024-06-07] MEDS: OLANZAPINE 10MG TABLET PO SCH (21:33)
[2024-06-08] VITALS: BP 137/82; PULSE 73; RESP 19; TEMP 37.00296; O2SAT 99
[2024-06-08 04:00] VITALS: BP 146/70; PULSE 80; RESP 20; TEMP 36.16956; O2SAT 100
[2024-06-08 08:00] VITALS: BP 122/74; PULSE 68; RESP 20; TEMP 36.28068; O2SAT 100
[2024-06-08 20:00] VITALS: BP 133/82; PULSE 71; RESP 18; TEMP 36.3918; O2SAT 99
[2024-06-08] MEDS: QUETIAPINE FUMARATE 50MG TABLET PO SCH (21:13)
[2024-06-09] VITALS: BP 117/70; PULSE 88; RESP 20; TEMP 36.9474; O2SAT 98
[2024-06-09 04:00] VITALS: BP 126/80; PULSE 77; RESP 19; TEMP 36.72516; O2SAT 97
[2024-06-09 08:00] VITALS: BP 150/95; PULSE 92; RESP 19; TEMP 36.72516; O2SAT 98
[2024-06-09 10:14] LABS: HEMOGLOBIN 13.3 g/dL (12.0-16.0); MEAN CORPUSCULAR HEMOGLOBIN 31.4 pg (28.0-32.0); MEAN CORPUSCULAR HGB CONC 32.5 g/dL (31.0-37.0); MEAN CORPUSCULAR VOLUME 96.6 fL (81.0-99.0); PLATELET 266 x1000/uL (130-400); RED BLOOD CELL COUNT 4.25 mill/uL (4.2-5.4); RED CELL DISTRIBUTION WIDTH 13.8 % (11.6-14.6); WHITE BLOOD COUNT 5.6 x1000/uL (4.5-11.0)
[2024-06-09 10:17] LABS: CHLORIDE 104 mEq/L (98-107); POTASSIUM 3.9 mEq/L (3.5-5.1); SODIUM 138 mEq/L (136-145)
[2024-06-09 10:18] LABS: CALCIUM 9.5 mg/dL (8.7-10.4); CARBON DIOXIDE 28 mEq/L (21-32)
[2024-06-09 10:23] LABS: CREATININE 1.2 mg/dL (0.6-1.0); GLUCOSE 158 mg/dL (70-105); UREA NITROGEN BLOOD 24 mg/dL (9-23)
[2024-06-09] MEDS ORDERED: HYDRALAZINE 10 MG in SODIUM CHLORIDE 0.9% 49.5 ML IV PRN (14:00)
[2024-06-09 20:00] VITALS: BP 143/84; PULSE 86; RESP 20; TEMP 36.61404; O2SAT 98
[2024-06-09] MEDS: QUETIAPINE FUMARATE 200MG TABLET PO SCH (20:41)
[2024-06-10 06:49] LABS: HEMATOCRIT 39.8 % (36.0-48.0); MEAN CORPUSCULAR HEMOGLOBIN 31.6 pg (28.0-32.0); MEAN CORPUSCULAR HGB CONC 32.7 g/dL (31.0-37.0); MEAN CORPUSCULAR VOLUME 96.7 fL (81.0-99.0); PLATELET 238 x1000/uL (130-400); RED BLOOD CELL COUNT 4.12 mill/uL (4.2-5.4); RED CELL DISTRIBUTION WIDTH 13.7 % (11.6-14.6); WHITE BLOOD COUNT 4.5 x1000/uL (4.5-11.0)
[2024-06-10 06:52] LABS: POTASSIUM 4.2 mEq/L (3.5-5.1)
[2024-06-10 06:53] LABS: CALCIUM 9.7 mg/dL (8.7-10.4)
[2024-06-10 06:58] LABS: CREATININE 1.2 mg/dL (0.6-1.0)
[2024-06-10 08:00] VITALS: BP 101/71; PULSE 86; RESP 19; TEMP 36.50292; O2SAT 97
[2024-06-10 12:00] VITALS: BP 123/61; PULSE 65; RESP 20; TEMP 36.44736; O2SAT 97
[2024-06-10 16:00] VITALS: PULSE 82; RESP 19; TEMP 36.50292; O2SAT 97
[2024-06-10 20:00] VITALS: BP 126/69; PULSE 88; RESP 19; TEMP 36.22512; O2SAT 97
[2024-06-11] VITALS: BP 123/66; PULSE 86; RESP 18; TEMP 36.6696; O2SAT 99
[2024-06-11 04:00] VITALS: BP 122/69; PULSE 82; RESP 18; TEMP 36.6696; O2SAT 99
[2024-06-11 08:00] VITALS: BP 148/90; PULSE 96; RESP 19; TEMP 35.94732; O2SAT 100
[2024-06-11] MEDS: OLANZAPINE 10 MG/VIAL IM PRN ×2 (09:44→19:23)
[2024-06-11 12:00] VITALS: BP 102/62; PULSE 63; RESP 18; TEMP 36.50292; O2SAT 99
[2024-06-11 16:00] VITALS: BP 115/70; PULSE 66; RESP 19; TEMP 37.05852; O2SAT 99
[2024-06-12] MEDS: FAMOTIDINE 20MG/2ML VIAL IV SCH (09:29)
[2024-06-12 12:00] VITALS: BP 90/59; PULSE 88; RESP 18; TEMP 36.50292; O2SAT 95
[2024-06-12 16:00] VITALS: BP 116/75; PULSE 73; RESP 19; TEMP 36.50292; O2SAT 96
[2024-06-12] MEDS ORDERED: OLANZAPINE 10 MG/VIAL IM PRN (18:00)
[2024-06-12 20:00] VITALS: BP 133/70; PULSE 80; RESP 20; TEMP 36.61404; O2SAT 100
[2024-06-13 08:00] VITALS: BP 148/89; PULSE 76; RESP 20; TEMP 37.05852; O2SAT 98
[2024-06-13 12:00] VITALS: BP 132/84; PULSE 74; RESP 20; TEMP 36.78072; O2SAT 99
[2024-06-14] VITALS (7 sets, daily range): BP systolic 106–140; BP diastolic 61–88; PULSE 69–84; RESP 16–18; TEMP 36.16956–37.2252; O2SAT 98–100
[2024-06-15] VITALS: BP 139/71; PULSE 73; RESP 17; TEMP 36.50292; O2SAT 100
[2024-06-15 04:00] VITALS: BP 121/78; PULSE 68; RESP 18; TEMP 37.28076; O2SAT 97
[2024-06-15 06:13] LABS: HEMATOCRIT 34.9 % (36.0-48.0); HEMOGLOBIN 11.6 g/dL (12.0-16.0); MEAN CORPUSCULAR HGB CONC 33.2 g/dL (31.0-37.0); MEAN CORPUSCULAR VOLUME 96.6 fL (81.0-99.0); PLATELET 256 x1000/uL (130-400); RED BLOOD CELL COUNT 3.61 mill/uL (4.2-5.4); RED CELL DISTRIBUTION WIDTH 13.6 % (11.6-14.6); WHITE BLOOD COUNT 3.4 x1000/uL (4.5-11.0)
[2024-06-15 06:19] LABS: CALCIUM 9.5 mg/dL (8.7-10.4); CARBON DIOXIDE 28 mEq/L (21-32); CHLORIDE 106 mEq/L (98-107); POTASSIUM 4.5 mEq/L (3.5-5.1); SODIUM 140 mEq/L (136-145)
[2024-06-15 06:25] LABS: CREATININE 1.1 mg/dL (0.6-1.0); GLUCOSE 94 mg/dL (70-105); UREA NITROGEN BLOOD 28 mg/dL (9-23)
[2024-06-15 08:00] VITALS: BP 118/81; PULSE 71; RESP 18; TEMP 37.33632; O2SAT 100
[2024-06-15] MEDS: FAMOTIDINE 20MG TABLET PO SCH (08:38)
[2024-06-15 12:00] VITALS: BP 141/83; PULSE 67; RESP 18; TEMP 37.33632; O2SAT 100
[2024-06-15 16:00] VITALS: BP 99/70; PULSE 71; RESP 18; TEMP 37.00296; O2SAT 100
[2024-06-15 20:00] VITALS: BP 118/71; PULSE 81; RESP 20; TEMP 36.3918; O2SAT 100
[2024-06-16] VITALS: BP 125/80; PULSE 68; RESP 17; TEMP 36.61404; O2SAT 98
[2024-06-16 04:00] VITALS: BP 119/70; PULSE 61; RESP 19; TEMP 36.78072; O2SAT 100
[2024-06-16 08:00] VITALS: BP 138/80; PULSE 62; RESP 19; TEMP 36.72516; O2SAT 100
[2024-06-16 12:00] VITALS: BP 126/79; PULSE 58; RESP 19; TEMP 36.61404; O2SAT 99
[2024-06-16 16:00] VITALS: BP 122/70; PULSE 67; RESP 20; TEMP 36.61404; O2SAT 98
[2024-06-16 20:00] VITALS: BP 167/83; PULSE 64; RESP 20; TEMP 35.89176; O2SAT 100
[2024-06-17 04:00] VITALS: BP 131/59; PULSE 63; RESP 20; TEMP 35.94732; O2SAT 95
[2024-06-17 08:00] VITALS: BP_SYST 122; BP_SYST 155; BP_DIAS 67; BP_DIAS 88; PULSE 65; PULSE 86; RESP 18; TEMP 36.55848; TEMP 36.78072; O2SAT 100; O2SAT 98
[2024-06-17 11:59] VITALS: BP 128/70; PULSE 61; RESP 18; TEMP 36.3918; O2SAT 100
[2024-06-17 16:00] VITALS: BP 130/81; PULSE 70; RESP 18; TEMP 36.6696; O2SAT 100
[2024-06-18] VITALS: BP 95/62; PULSE 70; RESP 20; TEMP 36.3918; O2SAT 99
[2024-06-18 08:00] VITALS: BP 159/89; PULSE 72; RESP 18; TEMP 36.89184; O2SAT 99
[2024-06-18 12:00] VITALS: BP 134/89; PULSE 83; RESP 16; TEMP 38.16972; O2SAT 99
[2024-06-18 16:00] VITALS: BP 151/79; PULSE 78; RESP 16; TEMP 37.11408; O2SAT 99
[2024-06-18 20:00] VITALS: BP 115/71; PULSE 68; RESP 20; TEMP 36.6696; O2SAT 99
[2024-06-19 00:01] VITALS: BP 96/65; PULSE 65; RESP 20; TEMP 36.50292; O2SAT 98
[2024-06-19 04:00] VITALS: BP 123/71; PULSE 69; RESP 18; TEMP 37.05852; O2SAT 99
[2024-06-19 08:00] VITALS: BP 154/90; PULSE 54; RESP 17; TEMP 36.6696; O2SAT 100
[2024-06-19 12:00] VITALS: BP 137/76; PULSE 63; RESP 18; TEMP 36.6696; O2SAT 100
[2024-06-19 12:59] LABS: BASOPHILS % 0.8 % (0.0-2.0); EOSINOPHILS % 2.1 % (0.0-5.0); HEMATOCRIT. 39.2 % (36.0-48.0); HEMOGLOBIN. 12.9 g/dL (12.0-16.0); LYMPHOCYTES % 39.9 % (20.0-50.0); MEAN CORPUSCULAR HEMOGLOBIN 32.1 pg (28.0-32.0); MEAN CORPUSCULAR HGB CONC 32.9 g/dL (31.0-37.0); MEAN CORPUSCULAR VOLUME 97.4 fL (81.0-99.0); MEAN PLATELET VOLUME 7.9 fl (7.4-10.4); MONOCYTES % 8.5 % (2.0-8.0); NEUTROPHILS % 48.7 % (40.0-76.0); PLATELET 301 x1000/uL (130-400); RED BLOOD CELL COUNT 4.03 mill/uL (4.2-5.4); RED CELL DISTRIBUTION WIDTH 13.3 % (11.6-14.6); WHITE BLOOD COUNT 3.3 x1000/uL (4.5-11.0)
[2024-06-19 13:04] LABS: CHLORIDE 104 mEq/L (98-107); POTASSIUM 4.1 mEq/L (3.5-5.1); SODIUM 138 mEq/L (136-145)
[2024-06-19 13:05] LABS: CALCIUM 9.7 mg/dL (8.7-10.4); CARBON DIOXIDE 32 mEq/L (21-32)
[2024-06-19 13:10] LABS: GLUCOSE 97 mg/dL (70-105); UREA NITROGEN BLOOD 19 mg/dL (9-23)
[2024-06-19 13:12] LABS: ALANINE AMINOTRANSFERASE 16 IU/L (10-49); ALBUMIN 4.5 g/dL (3.2-4.8); ASPARTATE AMINOTRANSFERASE 21 IU/L (<34); BILIRUBIN TOTAL 0.3 mg/dL (0.1-1.0); PROTEIN TOTAL 7.4 g/dL (6.0-8.3)
[2024-06-19 16:00] VITALS: BP 129/78; PULSE 64; RESP 18; TEMP 37.11408; O2SAT 100
[2024-06-19 20:00] VITALS: BP 157/83; PULSE 71; RESP 20; TEMP 36.22512; O2SAT 98
[2024-06-20 08:00] VITALS: BP 155/89; PULSE 69; RESP 19; TEMP 36.114; O2SAT 97
[2024-06-20 12:00] VITALS: BP 148/79; PULSE 60; RESP 18; TEMP 36.3918; O2SAT 100
[2024-06-20 16:00] VITALS: BP 155/78; PULSE 65; RESP 18; TEMP 36.50292; O2SAT 98
[2024-06-20] MEDS ORDERED: [UNRECOGNIZED DRUG - OTHER] IM (17:25)
[2024-06-20] MEDS ORDERED: NIFE-32 PO (17:25)
[2024-06-20] MEDS ORDERED: KEPP500 PO (17:25)
[2024-06-20] MEDS ORDERED: QUET200T30 PO (17:25)
[2024-06-20 20:00] VITALS: BP 141/70; PULSE 69; RESP 18; TEMP 37.05852; O2SAT 99
[2024-06-21] VITALS: BP 129/80; PULSE 74; RESP 16; TEMP 36.33624; O2SAT 100
[2024-06-21 04:00] VITALS: BP 111/70; PULSE 61; RESP 16; TEMP 36.3918; O2SAT 97
[2024-06-21 08:00] VITALS: BP 160/87; PULSE 82; RESP 18; TEMP 36.05844; O2SAT 99
[2024-06-21 12:00] VITALS: BP 135/80; PULSE 64; RESP 18; TEMP 36.50292; O2SAT 95
[2024-06-21 16:41] VITALS: BP 136/82; PULSE 82; TEMP 97.7; O2SAT 99
== END 2024-06-21 17:25 | disposition home or self-care (01) | DRG 52 ==
LOC: ER 12:12 → 5WST 15:32 → EDBEDREQ 15:36 → EDBEDREQTM 15:36 → 8WST 06-02 01:24 → 6EST 06-07 23:48
PROVIDERS: ADMIT Internal Medicine Pulmonary Disease; ATTEND Internal Medicine Pulmonary Disease
DX: G93.41 Metabolic encephalopathy (principal); F29 Unspecified psychosis not due to a substance or known physiological condition; G40.909 Epilepsy, unspecified, not intractable, without status epilepticus; E78.00 Pure hypercholesterolemia, unspecified; I16.0 Hypertensive urgency; E87.6 Hypokalemia; Z86.73 Personal history of transient ischemic attack (TIA), and cerebral infarction without residual deficits; Z59.00 Homelessness unspecified; I10 Essential (primary) hypertension; T50.2X5A Adverse effect of carbonic-anhydrase inhibitors, benzothiadiazides and other diuretics, initial encounter; F14.10 Cocaine abuse, uncomplicated; W10.9XXA Fall (on) (from) unspecified stairs and steps, initial encounter; Z91.148 Patient's other noncompliance with medication regimen for other reason; R27.0 Ataxia, unspecified
CPT/HCPCS: 36415; 71045; 80048; 80053; 80305; 80320; 81003; 82550; 82607; 82746; 83735; 84443; 84484; 84703; 85025; 85027; 93005; 95816; 97110; 97116; 97162; 97166; 99291; C1893; J0360; J1200; J1630; J1650; J1953; J2060; J3411; J3475; J3480; J3490; J7030; J7060; G0480